=== PATIENT | male | born 1970 | race Caucasian/White ===

== ENCOUNTER 2016-05-26 18:07 | Emergency (ER) | payer OTHER ==
[2016-05-26 18:14] VITALS: BP 117/79; PULSE 98; RESP 20; TEMP 98; O2SAT 96
[2016-05-26 19:06] LABS: RBC URINE 11 /hpf (0-3); URINE BACTERIA RARE (<OCC); URINE BILIRUBIN NEGATIVE (NEGATIVE); URINE COLOR Straw (YELLOW); URINE GLUCOSE (UA) NORMAL (Normal); URINE KETONE NEGATIVE (NEGATIVE); URINE LEUKOCYTE ESTERASE NEG Leu/uL (Negative); URINE PROTEIN NEGATIVE (NEGATIVE); URINE UROBILINOGEN NORMAL mg/dL (0.2-1.0); WBC URINE 2 /hpf (0-5)
[2016-05-26 19:10] LABS: URINE BLOOD 2+ (NEGATIVE)
[2016-05-26 19:25] LABS: BASO # 0.1 K/uL (0.0-0.2); BASO % 0.7 % (0.0-2.0); EOS # 0.2 K/uL (0.0-0.7); EOS % 1.7 % (0.0-4.0); HEMATOCRIT 44.7 % (35.0-51.0); LYMPH # 4.1 K/uL (1.0-4.3); LYMPH % 44.1 % (20.0-40.0); MEAN CELL VOLUME 86.6 fL (80.0-94.0); MEAN CORPUSCULAR HEMOGLOBIN 28.4 pg (27.0-31.0); MEAN CORPUSCULAR HGB CONC 32.8 g/dL (33.0-37.0); MEAN PLATELET VOLUME 8.7 fL (7.2-11.7); MONO # 0.6 K/uL (0.0-0.8); MONO % 6.1 % (0.0-10.0); WHITE BLOOD COUNT 9.4 K/uL (4.8-10.8)
[2016-05-26 19:33] LABS: CHLORIDE 96 mmol/L (98-107); POTASSIUM 4.3 mmol/L (3.6-5.2); SODIUM 138 mmol/L (132-148)
[2016-05-26 19:36] LABS: CARBON DIOXIDE 25 mmol/L (22-30); GFR AFRICAN-AMERICAN > 60
[2016-05-26 19:37] LABS: BLOOD UREA NITROGEN 17 mg/dL (9-20); CALCIUM 8.7 mg/dl (8.6-10.4); GLUCOSE,RANDOM 81 mg/dL (75-110)
--- NOTE | 2016-05-26 20:15 | C.PDOC ---
History Of Present Illness 45 y/o male presents to the ED with complains of hematuria intermittently x2 month. Pt was seen by Alonzo Gregory outpatient, had CT, renal US, blood work and urinalysis that were negative. Pt was to follow up with urologist but today hematuria became more consistent. Pt denies abdominal pain, nausea, vomiting, diarrhea, back pain, dysuria, fever or any other complaints. Time Seen by Provider: 05/26/16 18:25 Chief Complaint (Nursing): Male Genitourinary History Per: Patient History/Exam Limitations: no limitations Onset/Duration Of Symptoms: Days, Intermittent Episodes Current Symptoms Are (Timing): Worse Severity: Moderate Quality Of Discomfort: denies: "Pain" Associated Symptoms: Urinary Symptoms (hematuria; no dysuria). denies: Fever, Nausea, Vomiting, Diarrhea Alleviating Factors: None Recent travel outside of the [place]: No Past Medical History Reviewed: Historical Data, Nursing Documentation, Vital Signs Vital Signs: Last Vital Signs Temp 98 F 05/26/16 18:13 Pulse 98 H 05/26/16 18:13 Resp 20 05/26/16 20:29 BP 117/79 05/26/16 18:13 Pulse Ox 96 05/26/16 20:54 - Medical History PMH: No Chronic Diseases Family History: States: No Known Family Hx - Social History Hx Alcohol Use: No Hx Substance Use: No - Immunization History Hx Tetanus Toxoid Vaccination: No Hx Influenza Vaccination: No Review Of Systems Except As Marked, All Systems Reviewed And Found Negative. Constitutional: Negative for: Fever, Chills Gastrointestinal: Negative for: Nausea, Vomiting, Abdominal Pain, Diarrhea Genitourinary: Positive for: Hematuria. Negative for: Dysuria Musculoskeletal: Negative for: Back Pain Physical Exam - Physical Exam Appears: Non-toxic, No Acute Distress Skin: Warm, Dry, No Rash Head: Atraumatic, Normacephalic Eye(s): bilateral: Normal Inspection, PERRL, EOMI Oral Mucosa: Moist Throat: Normal, No Erythema, No Exudate Neck: Normal ROM, Supple Chest: Symmetrical Cardiovascular: Rhythm Regular, No Friction Rub, No Murmur Respiratory: Normal Breath Sounds, No Rales, No Rhonchi, No Wheezing Gastrointestinal/Abdominal: Soft, No Tenderness Back: Normal Inspection, No CVA Tenderness Extremity: Normal ROM, No Tenderness, No Swelling Extremity: Bilateral: Atraumatic Neurological/Psych: Oriented x3, Normal Speech, Normal Motor Gait: Steady ED Course And Treatment - Laboratory Results Result Diagrams: 05/26/16 19:22 05/26/16 19:22 O2 Sat by Pulse Oximetry: 96 (on room air) Pulse Ox Interpretation: Normal Progress Note: Plan: labs, Urinalysis, XR abdomen Medical Decision Making Medical Decision Making: On re-exam, the patient reports no pain at this time. Abdomen is soft, non- tender and tolerating PO well. Lungs are CTA, heart is RRR, The results were discussed with the and the need to follow up with the Urologist within 1-2 days without fail. Disposition - Disposition Referrals: Bernard Vann MD [Staff Provider] - Disposition: HOME/ ROUTINE Disposition Time: 20:14 Condition: GOOD Additional Instructions: Follow up with the medical doctor within 1-2 days without fail. Return if worsened. Instructions: Acute Hematuria (ED) - Clinical Impression Clinical Impression: Hematuria - PA / [employer] / Resident Statement MD/DO has reviewed & agrees with the documentation as recorded. - Scribe Statement The provider has reviewed the documentation as recorded by the Scribe Yanick Crum All medical record entries made by the Kwabenaibpiedad were at my direction and personally dictated by me. I have reviewed the chart and agree that the record accurately reflects my personal performance of the history, physical exam, medical decision making, and the department course for this patient. I have also personally directed, reviewed, and agree with the discharge instructions and disposition.
--- NOTE | 2016-05-27 13:25 | RAD ---
HISTORY: hematuria COMPARISON: No prior. FINDINGS: BOWEL: Normal. No obstruction. No free air. No abnormal intra-abdominal calcifications. BONES: Normal. OTHER FINDINGS: None. IMPRESSION: No active disease.
== END 2016-05-26 20:29 | disposition home or self-care (01) ==
LOC: C.ER 18:07
DX: R31.9 Hematuria, unspecified (principal)